=== PATIENT | female | born 1975 | race Hispanic/Latino ===

== ENCOUNTER 2017-02-19 18:20 | Emergency (ER) | payer BC ==
[2017-02-19] MEDS ORDERED: IBUPROFEN 200 MG TAB PO ONE (19:19)
[2017-02-19] MEDS ORDERED: PROMETHAZINE HCL 25 MG TAB PO ONE (19:19)
--- NOTE | 2017-02-19 19:28 | ED.PDOC ---
History of Present Illness - General Chief Complaint: General Stated Complaint: fatigue body cramps Time Seen by Provider: 02/19/17 18:31 Source: patient Exam Limitations: no limitations - History of Present Illness Initial Comments: the patient is a 41-year-old female presenting to the emergency room secondary to rather vague symptoms of mild generalized body aches as well as a feeling of bloating. No vomiting. Her appetite has been somewhat poor. Symptoms have been present the last 24 hours. She has had a mild runny nose. No syncope or near-syncope. No significant headache. No neurological changes. Timing/Duration: 24 hours Severity: mild Improving Factors: nothing Worsening Factors: nothing Associated Symptoms: loss of appetite, malaise Allergies/Adverse Reactions: Allergies Benzonatate [From Tessalon] Allergy (Verified 02/19/17 18:34) Rash Home Medications: Ambulatory Orders Buspirone HCl 10 mg PO BID 09/23/15 Lirpetakyf-Kfdpfnmshynfa-Vvrkh [Esgic 50-325-40 mg] 1 tab PO DAILY 09/23/15 Fluoxetine HCl [Prozac] 40 mg PO BEDTIME 09/23/15 Gabapentin 300 mg PO BID 09/23/15 Meloxicam [Mobic] 15 mg PO DAILY #10 tab 09/23/15 Review of Systems - Review of Systems Constitutional: States: malaise EENTM: States: nose congestion Respiratory: States: no symptoms reported Cardiology: States: no symptoms reported Gastrointestinal/Abdominal: States: nausea - mild Genitourinary: States: no symptoms reported Musculoskeletal: States: muscle pain Skin: States: no symptoms reported Neurological: States: no symptoms reported Endocrine: States: no symptoms reported All other Systems: No Change from Baseline Past Medical History (General) - Patient Medical History Hx Seizures: No Hx Stroke: No Hx Dementia: No Hx Asthma: No Hx of COPD: No Hx Cardiac Disorders: No Hx Congestive Heart Failure: No Hx Pacemaker: No Hx Hypertension: No Hx Thyroid Disease: No Hx Diabetes: No Hx Gastroesophageal Reflux: No Hx Renal Disease: No Hx Cancer: No Hx of HIV: No Hx Hepatitis C: No Hx MRSA: No MRSA Source:: Wound Surgical History: other - Vaccination History Hx Tetanus, Diphtheria Vaccination: Yes Hx Influenza Vaccination: No Hx Pneumococcal Vaccination: No - Social History Hx Tobacco Use: No Hx Chewing Tobacco Use: No Hx Alcohol Use: No Hx Substance Use: No Hx Substance Use Treatment: No Hx Depression: No Hx Physical Abuse: No Hx Emotional Abuse: No Hx Suspected Abuse: No - Female History Patient is a Female of Child Bearing Age (10 -59 yrs old): Yes Hx Last Menstrual Period: 03/31/14 Patient : No Expected Date of Delivery:: 01/03/13 Family Medical History - Family History Father Maternal Family History: No Known Living Status: Still Living Hx Family Diabetes: Yes Hx Family;Other: kidney disease Physical Exam - Physical Exam General Appearance: Alert, Comfortable, No apparent distress Eye Exam: bilateral normal Ears, Nose, Throat: hearing grossly normal, normal pharynx, abnormal TM (R), nasal congestion Neck: full range of motion, supple Respiratory: lungs clear, normal breath sounds, no respiratory distress, no accessory muscle use Cardiovascular/Chest: normal peripheral pulses, regular rate, rhythm, no edema Peripheral Pulses: radial,right: 2+, radial,left: 2+, dorsalis pedis,right: 2+, dorsalis pedis,left: 2+ Gastrointestinal/Abdominal: non tender, soft, no organomegaly Rectal Exam: deferred Back Exam: normal inspection, no CVA tenderness, no vertebral tenderness Extremity: normal range of motion, non-tender, normal inspection, no pedal edema , normal capillary refill Neurologic: [place] II-XII nml as tested, alert, normal mood/affect, oriented x 3 Skin Exam: normal color Comments: Vital Signs - 24 hr 02/19/17 18:25 Temperature 98.3 F Pulse Rate [ 77 pulse ox] Respiratory 18 Rate Blood Pressure 120/81 [Left Arm] O2 Sat by Pulse 96 Oximetry Progress - Progress Progress: 02/19/17 19:28 the patient's a 41-year-old presenting with symptoms of malaise and body aches and mild bloating. Lab work is rather nonspecific there is a very mild elevation in her AST and ALT. There is no focal pain over the gallbladder or liver. She does need to increase her fluid intake. This constellation of symptoms and findings is most likely consistent with a viral syndrome. Ibuprofen can be used for discomfort. She should follow up with her primary care doctor before the weekend for a repeat set of liver function tests. ER warnings were given. - Results/Orders Results/Orders: Laboratory Results - last 24 hr 02/19/17 02/19/17 02/19/17 18:40 18:40 18:40 WBC 10.5 RBC 4.90 Hgb 12.7 Hct 39.3 MCV 80.2 L MCH 25.8 L MCHC 32.2 L RDW 15.6 H Plt Count 431 H MPV 7.5 Absolute Neuts (auto) 5.60 Absolute Lymphs (auto) 3.60 H Absolute Monos (auto) 0.80 Absolute Eos (auto) 0.40 Absolute Basos (auto) 0.10 Neutrophils % 53.2 Lymphocytes % 34.1 Monocytes % 7.5 Eosinophils % 4.3 Basophils % 0.9 Sodium 141 Potassium 3.6 Chloride 105 Carbon Dioxide 29 Anion Gap 10.6 L BUN 14 Creatinine 0.67 BUN/Creatinine Ratio 20.9 H Random Glucose 104 Serum Osmolality 282.0 Calcium 8.9 Magnesium 1.9 Total Bilirubin 0.5 AST 62 H ALT 65 H Alkaline Phosphatase 64 Creatine Kinase 83 CK-MB (CK-2) 2.3 CK-MB (CK-2) % Not Reportable Troponin I < 0.02 Serum Total Protein 7.2 Albumin 3.7 Globulin 3.5 Albumin/Globulin Ratio 1.1 Urine Color Urine Appearance Urine pH Ur Specific [place] Urine Protein Urine Glucose (UA) Urine Ketones Urine Blood Urine Nitrite Urine Bilirubin Urine Urobilinogen Ur Leukocyte Esterase Urine RBC Urine WBC Ur Epithelial Cells Urine Bacteria Urine Mucus Urine HCG, Qual Negative 02/19/17 18:44 WBC RBC Hgb Hct MCV MCH MCHC RDW Plt Count MPV Absolute Neuts (auto) Absolute Lymphs (auto) Absolute Monos (auto) Absolute Eos (auto) Absolute Basos (auto) Neutrophils % Lymphocytes % Monocytes % Eosinophils % Basophils % Sodium Potassium Chloride Carbon Dioxide Anion Gap BUN Creatinine BUN/Creatinine Ratio Random Glucose Serum Osmolality Calcium Magnesium Total Bilirubin AST ALT Alkaline Phosphatase Creatine Kinase CK-MB (CK-2) CK-MB (CK-2) % Troponin I Serum Total Protein Albumin Globulin Albumin/Globulin Ratio Urine Color Yellow Urine Appearance Sl cloudy Urine pH 5.5 Ur Specific [place] >= 1.030 Urine Protein Negative Urine Glucose (UA) Negative Urine Ketones Negative Urine Blood Negative Urine Nitrite Negative Urine Bilirubin Negative Urine Urobilinogen 0.2 Ur Leukocyte Esterase Negative Urine RBC 0-1 Urine WBC 5-10 H Ur Epithelial Cells 20-30 Urine Bacteria 4+ H Urine Mucus Small Urine HCG, Qual Departure - Departure Clinical Impression: Viral syndrome Disposition: Discharge to Home or Self Care Departure Forms: ED Discharge - Pt. Copy, Patient Portal Self Enrollment Instructions: DI for Viral Syndrome Diet: bland diet, low fat, low cholesterol Activity: increase activity as tolerated Referrals: SHAHBAZ HOUSER [Primary Care Provider] - 1-2 Weeks Home Medications: Ambulatory Orders Buspirone HCl 10 mg PO BID 09/23/15 Ybkvpyazxf-Vjwifnzaseden-Pctfw [Esgic 50-325-40 mg] 1 tab PO DAILY 09/23/15 Fluoxetine HCl [Prozac] 40 mg PO BEDTIME 09/23/15 Gabapentin 300 mg PO BID 09/23/15 Meloxicam [Mobic] 15 mg PO DAILY #10 tab 09/23/15 Additional Instructions: the patient's a 41-year-old presenting with symptoms of malaise and body aches and mild bloating. Lab work is rather nonspecific there is a very mild elevation in her AST and ALT. There is no focal pain over the gallbladder or liver. She does need to increase her fluid intake. This constellation of symptoms and findings is most likely consistent with a viral syndrome. Ibuprofen can be used for discomfort. She should follow up with her primary care doctor before the weekend for a repeat set of liver function tests. ER warnings were given.
[2017-02-19 19:44] VITALS: BP 91/60; TEMP 97.9; O2SAT 95
== END 2017-02-19 19:44 | disposition home or self-care (01) ==
LOC: ER 18:20
DX: B34.9 Viral infection, unspecified (principal); Z88.8 Allergy status to other drugs, medicaments and biological substances
CPT/HCPCS: 80053; 81001; 81025; 82550; 82553; 83735; 84484; 85025; 87502; Q0169

== ENCOUNTER 2017-04-21 21:03 | Emergency (ER) | payer BC ==
[2017-04-21 21:17] VITALS: BP 106/73; TEMP 97.4; O2SAT 98
--- NOTE | 2017-04-21 21:34 | ED.PDOC ---
History of Present Illness - General Chief Complaint: Headache Stated Complaint: headache Time Seen by Provider: 04/21/17 21:20 Source: patient Exam Limitations: no limitations - History of Present Illness Initial Comments: the patient is a 41-year-old female presented to the emergency room secondary to a headache. The headache is basically over the top of her head around the frontal area. No pain over the temporal artery. No vision changes. She has had some mild nausea. She does have a history of fairly frequent headaches. The patient does take immunosuppressants for her Sjogren syndrome. No fevers. No significant nasal discharge. No sore throat. No indication for sinusitis. No meningeal signs. The patient is alert and oriented 4. The patient had a head CT for a headache [id number]. no neurological deficits. No aura. Timing/Duration: 4-6 hours Severity: moderate Improving Factors: nothing Worsening Factors: nothing Associated Symptoms: denies symptoms Allergies/Adverse Reactions: Allergies Benzonatate [From Tessalon] Allergy (Verified 02/19/17 18:34) Rash Home Medications: Ambulatory Orders Buspirone HCl 10 mg PO BID 09/23/15 Qksqwyypnv-Xkimxbpivuumi-Hjouz [Esgic 50-325-40 mg] 1 tab PO DAILY 09/23/15 Fluoxetine HCl [Prozac] 40 mg PO BEDTIME 09/23/15 Gabapentin 300 mg PO BID 09/23/15 Meloxicam [Mobic] 15 mg PO DAILY #10 tab 09/23/15 Review of Systems - Review of Systems Constitutional: States: malaise EENTM: States: no symptoms reported Respiratory: States: no symptoms reported Cardiology: States: no symptoms reported Gastrointestinal/Abdominal: States: nausea Genitourinary: States: no symptoms reported Musculoskeletal: States: no symptoms reported Skin: States: no symptoms reported Neurological: States: headache Endocrine: States: no symptoms reported All other Systems: No Change from Baseline Past Medical History (General) - Patient Medical History Hx Seizures: No Hx Stroke: No Hx Dementia: No Hx Asthma: No Hx of COPD: No Hx Cardiac Disorders: No Hx Congestive Heart Failure: No Hx Pacemaker: No Hx Hypertension: No Hx Thyroid Disease: No Hx Diabetes: No Hx Gastroesophageal Reflux: No Hx Renal Disease: No Hx Cancer: No Hx of HIV: No Hx Hepatitis C: No Hx MRSA: No MRSA Source:: Wound Surgical History: other - Vaccination History Hx Tetanus, Diphtheria Vaccination: Yes Hx Influenza Vaccination: No Hx Pneumococcal Vaccination: No Immunizations Up to Date: Yes - Social History Hx Tobacco Use: No Hx Chewing Tobacco Use: No Hx Alcohol Use: No Hx Substance Use: No Hx Substance Use Treatment: No Hx Depression: No Hx Physical Abuse: No Hx Emotional Abuse: No Hx Suspected Abuse: No - Female History Patient is a Female of Child Bearing Age (10 -59 yrs old): Yes Hx Last Menstrual Period: 03/31/14 Patient : No Expected Date of Delivery:: 01/03/13 Family Medical History - Family History Father Maternal Family History: No Known Living Status: Still Living Hx Family Diabetes: Yes Hx Family;Other: kidney disease Physical Exam - Physical Exam General Appearance: Alert, No apparent distress Eye Exam: bilateral normal Ears, Nose, Throat: hearing grossly normal, normal ENT inspection, other - poor dentition Neck: non-tender, full range of motion, supple Respiratory: lungs clear, normal breath sounds, no respiratory distress, no accessory muscle use Cardiovascular/Chest: normal peripheral pulses, regular rate, rhythm, no edema Peripheral Pulses: radial,right: 2+, radial,left: 2+, dorsalis pedis,right: 2+, dorsalis pedis,left: 2+ Gastrointestinal/Abdominal: non tender, soft Rectal Exam: deferred Back Exam: normal inspection, no CVA tenderness, no vertebral tenderness Extremity: normal range of motion, non-tender, normal inspection, no pedal edema , normal capillary refill Neurologic: [employer] II-XII nml as tested, no motor/sensory deficits, alert, normal mood/affect, oriented x 3 Skin Exam: normal color Comments: Vital Signs - 8 hr 04/21/17 04/21/17 21:07 21:13 Temperature 97.4 F L Pulse Rate [ 60 60 Left Radial] Respiratory 18 18 Rate Blood Pressure 106/73 [Left Arm] O2 Sat by Pulse 98 Oximetry Progress - Progress Progress: 04/21/17 21:35 the patient is a 41-year-old female presenting to the emergency room secondary to what appears to be a tension headache present for the last 4 or 5 hours. No meningeal signs and no evidence of infection at this time. The patient received a dose of Toradol, Phenergan and a pain tablet. She is to increase her fluid intake. ER warnings are given for any significant worsening or change in symptoms, which might indicate a different workup. She should follow-up with her primary care doctor tomorrow or Tuesday for reevaluation. Departure - Departure Clinical Impression: Tension type headache Qualifiers: Headache chronicity pattern: acute headache Intractability: not intractable Qualified Code(s): G44.209 - Tension-type headache, unspecified, not intractable Disposition: Discharge to Home or Self Care Condition: Fair Departure Forms: ED Discharge - Pt. Copy, Patient Portal Self Enrollment Diet: regular diet Activity: increase activity as tolerated Referrals: SHAHBAZ HOUSER [Primary Care Provider] - 1-2 Weeks Home Medications: Ambulatory Orders Buspirone HCl 10 mg PO BID 09/23/15 Taqfowrhtc-Jnxtoguhjptil-Ljdpj [Esgic 50-325-40 mg] 1 tab PO DAILY 09/23/15 Fluoxetine HCl [Prozac] 40 mg PO BEDTIME 09/23/15 Gabapentin 300 mg PO BID 09/23/15 Meloxicam [Mobic] 15 mg PO DAILY #10 tab 09/23/15 Additional Instructions: the patient is a 41-year-old female presenting to the emergency room secondary to what appears to be a tension headache present for the last 4 or 5 hours. No meningeal signs and no evidence of infection at this time. The patient received a dose of Toradol, Phenergan and a pain tablet. She is to increase her fluid intake. ER warnings are given for any significant worsening or change in symptoms, which might indicate a different workup. She should follow-up with her primary care doctor tomorrow or Tuesday for reevaluation.
[2017-04-21] MEDS: HYDROcodone 7.5MG/APAP 325MG 1 EA TAB PO ONE (21:44)
[2017-04-21] MEDS: PROMETHAZINE HCL INJ 25 MG/ML VIAL IM ONE (21:44)
[2017-04-21] MEDS: KETOROLAC TROMETHAMINE INJ 30 MG/ML VIAL IM ONE (21:44)
== END 2017-04-21 21:58 | disposition home or self-care (01) ==
LOC: ER 21:03
DX: G44.209 Tension-type headache, unspecified, not intractable (principal); Z88.8 Allergy status to other drugs, medicaments and biological substances; M35.00 Sjogren syndrome, unspecified; Z79.899 Other long term (current) drug therapy
CPT/HCPCS: J1885; J2550